=== PATIENT | male | born 1970 | race Caucasian/White ===

== ENCOUNTER 2016-09-26 20:54 | Emergency (ER) | payer SELFPAY ==
[~2016-09-26] VITALS: Ht 193 cm; Wt 108.9 kg
--- NOTE | 2016-09-26 21:25 | Emergency Room Report ---
History of Present Illness General Chief Complaint: Pain Source: Patient Present Illness HPI Is a 45-year-old male with history of diabetes and drug abuse. He presents with chief complaint of bilateral lower extremity pain. Is an ongoing problem for many months. Denies any fever chills denies any nausea vomiting. No trauma. He has been to multiple hospitals for this. He was told that he has poor circulation. Denies any other complaint. Pain is 10 out of 10. No radiation. No fever or chills. Allergies: Coded Allergies: No Known Allergies (Unverified , 09/26/16) Patient History Past Medical History: see triage record, old chart reviewed, DM, psych hx Past Surgical History: other Pertinent Family History: none Social History: Reports: drug use, smoking Immunizations: other Reviewed Nursing Documentation: PMH: Agreed, PSxH: Agreed Nursing Documentation-PMH Past Medical History: No History, Except For Hx Cardiac Problems: Yes - A-fib, poor circulation in legs Hx Hypertension: Yes Review of Systems Eye: Denies: blurred vision, eye pain ENT: Denies: ear pain, nose congestion, throat swelling Respiratory: Denies: cough, shortness of breath Cardiovascular: Denies: chest pain, palpitations Gastrointestinal: Denies: abdominal pain, diarrhea, nausea, vomiting Musculoskeletal: Reports: muscle pain, Denies: back pain, joint pain Skin: Denies: rash Neurological: Denies: headache, numbness Endocrine: Denies: increased thirst, increased urine Hematologic/Lymphatic: Denies: easy bruising All Other Systems: negative except mentioned in HPI Physical Exam Vital Signs Date Time Temp Pulse Resp B/P Pulse Ox O2 Delivery O2 Flow Rate FiO2 09/26/16 21:04 98.1 130 22 144/67 98 Room Air vitals with tachycardia Sp02 EP Interpretation: reviewed, normal General Appearance: well appearing, no apparent distress, alert, other - Malodorous and dishelved. Head: normocephalic, atraumatic Eyes: bilateral eye EOMI, bilateral eye PERRL ENT: hearing grossly normal, normal pharynx Neck: full range of motion, supple, no meningismus Respiratory: chest non-tender, lungs clear, normal breath sounds Cardiovascular #1: regular rate, rhythm, no murmur Gastrointestinal: normal bowel sounds, non tender, no mass, no organomegaly, no bruit, non-distended Musculoskeletal: back normal, gait/station normal, normal range of motion, other - Bilateral lower extremity: Diffuse tenderness. No crepitus. Skin is hyperemic. Decreased pulses bilaterally. No pitting edema. Psychiatric: mood/affect normal Skin: warm/dry Medical Decision Making Diagnostic Impression: Primary Impression: Peripheral neuropathy Qualified Codes: G62.9 - Polyneuropathy, unspecified Additional Impressions: Methamphetamine abuse Cellulitis of both lower extremities ER Course Patient present with neuropathy of lower extremities. He is asking for narcotics. He did use IV drugs prior to arrival. He has track posadas on his arms. He said increased risk for infection. I will go ahead and put him on antibiotics for cellulitis. I see no evidence of necrotizing fasciitis. Doubt bilateral DVT. repeat heart rate here is 110. We'll discharge home. Last Vital Signs Date Time Temp Pulse Resp B/P Pulse Ox O2 Delivery O2 Flow Rate FiO2 09/26/16 21:04 98.1 130 22 144/67 98 Room Air Status: improved Disposition: HOME, SELF-CARE Condition: Stable Scripts Doxycycline Monohydrate* (DOXYCYCLINE MONOHYDRATE*) 100 Mg Capsule 100 MG ORAL Q12H, #14 CAP 0 Refills Prov: DEB CRISTINA M.D. 09/26/16 Ibuprofen* (MOTRIN*) 600 Mg Tablet 600 MG ORAL Q6H Y for For Pain, #30 TAB Prov: DEB CRISTINA M.D. 09/26/16 Patient Instructions: Chronic Pain Additional Instructions: Stop using drugs. Followup with your DrBailee in 7 days. Go to rehabilitation for your drug abuse. Return if worse. DEB CRISTINA M.D. Sep 26, 2016 21:25
[2016-09-26 21:30] VITALS: BP 139/72
[2016-09-26 21:34] VITALS: BP 139/72
[2016-09-26] MEDS ORDERED: IBUPROFEN600 MG ORAL (21:38)
[2016-09-26] MEDS ORDERED: DOXYCYCLINE MO100 MG ORAL (21:38)
[2016-09-26 21:52] VITALS: BP 139/72
== END 2016-09-26 21:54 | disposition home or self-care (01) ==
LOC: EMR 21:30
DX: L03.116 Cellulitis of left lower limb (principal); L03.115 Cellulitis of right lower limb; E11.42 Type 2 diabetes mellitus with diabetic polyneuropathy; F15.10 Other stimulant abuse, uncomplicated; I10 Essential (primary) hypertension; I48.91 Unspecified atrial fibrillation; F17.200 Nicotine dependence, unspecified, uncomplicated
CPT/HCPCS: 82962; 99284